=== PATIENT | male | born 1945 | race Caucasian/White ===

== ENCOUNTER 2020-10-27 04:14 | Emergency (ER) | payer MEDICARE ==
[~2020-10-27] VITALS: Ht 170.2 cm; Wt 111.1 kg
[2020-10-27 04:14] VITALS: BP_SYST 145
[2020-10-27 04:43] LABS: BASOPHILS % (AUTO) 0.3 % (0.0-2.0); EOSINOPHILS # (AUTO) 0.1 K/uL (0.0-0.4); EOSINOPHILS % (AUTO) 0.9 % (0.0-4.0); HEMATOCRIT 34.8 % (36-54); HEMOGLOBIN 10.9 g/dL (14.0-18.0); LYMPHOCYTES # (AUTO) 0.5 K/uL (1.0-5.5); LYMPHOCYTES % (AUTO) 3.7 % (20.5-51.5); MEAN CORPUSCULAR HEMOGLOBIN 28 pg (27-31); MEAN CORPUSCULAR HGB CONC 31 % (32-36); MEAN CORPUSCULAR VOLUME 88 fL (79.0-98.0); MONOCYTES # (AUTO) 1.3 K/uL (0.0-1.0); MONOCYTES % (AUTO) 9.9 % (1.7-9.3); NEUTROPHILS # (AUTO) 11.5 K/uL (1.8-7.7); NEUTROPHILS % (AUTO) 85.2 % (40.0-70.0); PLATELET COUNT (AUTO) 456 K/uL (130-430); RED BLOOD CELL COUNT(AUTO) 3.93 MIL/uL (4.2-6.2); RED CELL DISTRIBUTION WIDTH 15.6 % (9.0-15.0); WHITE BLOOD COUNT (AUTO) 13.5 K/uL (4.8-10.8)
[2020-10-27 04:57] LABS: ANION GAP 12 (5-15); CALCIUM 8.9 mg/dL (8.4-11.0); CHLORIDE 97 mmol/L (98-107); GLUCOSE 118 mg/dL (70-99); POTASSIUM 3.7 mmol/L (3.5-5.1); SODIUM SERUM 137 mmol/L (136-145)
[2020-10-27 04:58] LABS: ALANINE AMINOTRANSFERASE 28 U/L (12-78); ASPARTATE AMINOTRANSFERASE 29 U/L (10-37); CREATININE 4.18 mg/dL (0.55-1.30); TOTAL BILIRUBIN 0.7 mg/dL (0.0-1.0); UREA NITROGEN, BLOOD 26 mg/dL (8-21)
[2020-10-27 05:17] LABS: INR 3.2 (0.80-1.20); PROTHROMBIN TIME 31.4 SECS (9.5-12.5)
[2020-10-27] MEDS ORDERED: cefTRIAXone 1 GM in D5W 50 ML IV ONE (06:00)
[2020-10-27] MEDS ORDERED: cefTRIAXone 1 GM IVPB PREMIX 50 ML IV ONE (06:07)
[2020-10-27] MEDS ORDERED: VANCOMYCIN HCL 500 MG in NS 100 ML IV ONE (06:45)
[2020-10-27] MEDS ORDERED: VANCOMYCIN HCL 500 MG/VIAL IV ONE (06:54)
[2020-10-27] MEDS ORDERED: MORPHINE 2 MG/ML INJ. SYRINGE IVP ONE (08:00)
[2020-10-27 08:39] VITALS: BP_SYST 117
== END 2020-10-27 08:39 | disposition short-term general hospital (02) ==
LOC: SED 04:14
DX: A41.9 Sepsis, unspecified organism (principal); R53.1 Weakness; N48.89 Other specified disorders of penis; N18.6 End stage renal disease; I50.9 Heart failure, unspecified; I48.91 Unspecified atrial fibrillation; Z88.8 Allergy status to other drugs, medicaments and biological substances; Z99.2 Dependence on renal dialysis; Z20.822 Contact with and (suspected) exposure to COVID-19
CPT/HCPCS: 36415; 71045; 80053; 82550; 82962; 83605; 83880; 84484; 85025; 85379; 85610; 87426; 93005; 96365; 96367; 96375; 99291; J0696; J2270; J3370; J7030